=== PATIENT | female | born 1955 | race African-American/Black ===

== ENCOUNTER 2019-07-15 15:14 | Emergency (ER) | payer SELFPAY ==
[~2019-07-15] VITALS: Ht 165.1 cm; Wt 81.0 kg
[2019-07-15] MEDS ORDERED: IBUPROFEN 600MG TABLET PO ONE (19:30)
[2019-07-15 19:52] VITALS: BP 110/65
== END 2019-07-15 19:53 | disposition home or self-care (01) ==
LOC: ER 15:14 → EDSEX 15:14 → ER 19:53
DX: S90.32XA Contusion of left foot, initial encounter (principal); M79.675 Pain in left toe(s); I10 Essential (primary) hypertension; R73.03 Prediabetes; E55.9 Vitamin D deficiency, unspecified; M85.80 Other specified disorders of bone density and structure, unspecified site; Z85.9 Personal history of malignant neoplasm, unspecified; Z88.0 Allergy status to penicillin; W22.8XXA Striking against or struck by other objects, initial encounter; Y93.89 Activity, other specified; Y92.012 Bathroom of single-family (private) house as the place of occurrence of the external cause
CPT/HCPCS: 73630; 99283; Z7610